=== PATIENT | male | born 1980 | race Two or more races ===

== ENCOUNTER → 2020-12-21 17:04 | Outpatient (CLI) | payer SELFPAY | PROVIDERS: PCP Physician Assistant; Visit Provider Nurse Practitioner | DX: Z20.822 Contact with and (suspected) exposure to COVID-19 (principal) | CPT/HCPCS: C9803; U0003; U0005 ==

== ENCOUNTER 2022-05-03 10:27 | Emergency (ER) | payer SELFPAY ==
[2022-05-03 10:28] VITALS: BP 124/74; PULSE 70; RESP 17; TEMP 36.8; O2SAT 100; BMI 19.2
--- NOTE | 2022-05-03 10:45 | PC.NURSE ---
PT UNABLE TO PERFORM VISUAL ACUITY EXAM WITHOUT GLASSES OR CONTACTS
--- NOTE | 2022-05-03 10:48 | PC.NURSE ---
DR. HILTON AT BEDSIDE
--- NOTE | 2022-05-03 11:06 | HMH.EDGENADL ---
Discharge Plan Disposition Patient Disposition: Home, Self-Care Condition: Good Referrals Follow up/Referrals: Jere Rebolledo OD [Referring] - See instructions Provider,MD Paris [Primary Care Provider] - See instructions Activity Restrictions/Add. Instructions Additional Instructions/Restrictions: Apply the antibiotic drops every 4-6 hours. Call today for close follow-up with optometry. Return for worsening pain, decreasing vision or other concerns. Avoid ibuprofen and aspirin however you may take Tylenol as needed for discomfort. Avoid exertion. Clinical Impressions Clinical Impression: Subconjunctival hemorrhage Discharge ED Provider: Issa Russo General Adult HPI General Chief complaint: Eye Problems Stated complaint: RT eye redness possible foreign object Time Seen by Provider: 05/03/22 10:46 Mode of Arrival: Ambulatory Limitations: No Limitations Description of Symptoms (Recalled from ER Triage Doc. 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 DENIES PAIN, ITCHING OR BURNING. DENIES VISUAL DISTURBANCE History of Present Illness HPI narrative: The patient presents complaining of right eye discomfort that began last Sunday while he was working beneath the roof of the house when he had some dust into the eye. He denies decrease or change in vision he denies additional injuries he denies foreign body sensation at this time mother states initially had a foreign body sensation. He denies diplopia. Symptoms are described as moderate and without exacerbating or alleviating factors. Related Data Allergies Allergy/AdvReac Type Severity Reaction Status Date / Time PCN (PENICILLIN) Allergy Unknown I-RASH Uncoded 03/20/17 15:14 PFSH [facility] Disclaimer: The information contained in this section may have been updated after the patient was seen, as this information can be updated by other users. Social History Smoking Status: Never smoker alcohol intake: never current occupational status: employed Travel in the last 8 weeks: None ROS Obtained: Yes All systems reviewed & no additional complaints except as documented Physical Exam General General appearance: alert Head Head exam: atraumatic (There is no evidence of head trauma aside from the apparent eye injury.) Eye Eye exam: Present other (To the nasal aspect of the right eye there is an approximate 1 cm diameter area of subconjunctival hemorrhage. Double lid eversion is negative for foreign bodies. The eyes stained with fluorescein and no foreign bodies are visualized nor are there any definitive corneal defects appreciated. There) ENT ENT exam: Present normal exam Neck Neck exam: Present normal inspection Chest Chest inspection: Present normal inspection Respiratory Respiratory exam: Present normal lung sounds bilaterally Cardiovascular Cardiovascular exam: Present regular rate and normal rhythm Abdominal Exam Abdominal exam: Present soft; Absent tenderness Back Exam Back exam: Present normal inspection Neurological Exam Neurological exam: Present alert and oriented X3 Psychiatric Psychiatric exam: Present normal affect Skin Skin exam: Present warm and dry Medical Decision Making Medical Records Medical records reviewed: Yes I reviewed the patient's medical records. [place] Inquiry Pt receiving controlled substance: No Vital Signs: 05/03/22 10:28 Temperature 98.2 F Temperature Source Oral Pulse Rate [Radial] 70 Respiratory Rate 17 Blood Pressure [Left Arm] 124/74 Blood Pressure Mean [Left Arm] 90 Blood Pressure Source [Left Arm] Automatic Cuff Blood Pressure Position [Left Arm] Sitting 02 Sat by Pulse Oximetry 100 Oxygen Delivery Method Room Air Orders (Tests/Meds): ED MEDICATIONS Discontinued Medications Generic Name Dose Route Start Last Admin Trade Name Freq PRN Reason Stop Dose Ad
[2022-05-03 12:14] VITALS: BP 130/70; PULSE 70; RESP 18; TEMP 36.7; O2SAT 99
== END 2022-05-03 11:15 | disposition home or self-care (01) ==
PROVIDERS: Emergency Provider Emergency Medicine
DX: H11.31 Conjunctival hemorrhage, right eye (principal)
CPT/HCPCS: 99283; 99284

== ENCOUNTER 2024-02-05 11:45 | Emergency (ER) | payer SELFPAY ==
[2024-02-05 11:55] VITALS: BP 126/81; PULSE 66; RESP 20; TEMP 37.4; O2SAT 98; BMI 19.2
--- NOTE | 2024-02-05 12:06 | ED_ITS ---
Discharge Plan Disposition Patient Disposition: Home, Self-Care Condition: Good Prescriptions Prescriptions: New clindamycin HCl 300 mg capsule 300 mg PO Q8H 7 Days Qty: 21 0RF Referrals Follow up/Referrals: Provider,Referral, MD [Primary Care Provider] - See instructions Activity Restrictions/Add. Instructions Additional Instructions/Restrictions: Suture instructions: ?You have required stitches today. Please read the following instructions so you know how to care for them: ?1. Keep wound area dry for the first 24 hours. 2?? May clean gently with mild soap and water, after 48 hours to prevent crusting over suture knots. 3. You may shower if your provider gives permission but do not take a bath until the skin is healed.. 4. Never leave a wet dressing or Band-Aid on your stitches as this allows bacteria to reach the area and may cause infection. Band-aids can cause the wound to sweat and not recommended to wear for long periods of time Watch for signs of infection: ? Increasing redness, tenderness or warmth around the suture site ? Unusual swelling around the site ? Appearance of pus around each suture or any red streaks ? Fever If you develop any of the above signs or symptoms of infection, Follow up with Family Physician immediately 5. Suture removal in _10-12___days 6. Return to [facility] or follow up with family doctor for removal. This can be done by any medical provider dur?ing regular hours on Sunday through Sunday, by appointment. Clinical Impressions Clinical Impression: Laceration Instructions Patient Instructions: DI for Laceration Repair, Clindamycin Print Language Print Language: Greenlandic Discharge ED Provider: Zena Gilbert [facility] HPI General Stated complaint: cut on left thumb Mode of Arrival: Ambulatory Source of Information: Patient Limitations: No Limitations Time Seen by Provider: 02/05/24 12:06 Description of Symptoms (Recalled from Triage Doc. 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 States he is able to move and bend finger and denies any loss of sensation or feeling in finger not sure when his last tetanus was Related Data Previous Rx's ?Medication ?Instructions ?Recorded clindamycin HCl 300 mg capsule 300 mg PO Q8H 7 days #21 caps 02/05/24 Allergies Allergy/AdvReac Type Severity Reaction Status Date / Time Penicillins Allergy Unknown Verified 02/05/24 12:00 allergy reaction Worker's Comp Is this a Worker's Comp case?: No [facility] Disclaimer: The information contained in this section may have been updated after the patient was seen, as this information can be updated by other users. Medical History (Updated 02/05/24 @ 12:54 by Zena Gilbert APRN) No significant past medical history Social History (Updated 05/03/22 @ 11:09 by Issa Russo MD) Smoking Status: Never smoker alcohol intake: never current occupational status: employed Travel in the last 8 weeks: None ROS Obtained: Yes All systems reviewed & no additional complaints except as documented and Yes Systems reviewed as appropriate & no additional complaints except as documented Constitutional Constitutional: Reports system reviewed and no additional complaints, except as documented and Reports as per HPI ENT Ears, Nose, Mouth, and Throat: Reports system reviewed and no additional complaints, except as documented and Reports as per HPI Cardiovascular Cardiovascular: Reports system reviewed and no additional complaints, except as documented and Reports as per HPI Respiratory Respiratory: Reports system reviewed and no additional complaints, except as documented and Reports as per HPI Gastrointestinal Gastrointestingal: Reports system reviewed and no additional complaints, except as documented and as per HPI Integumentary/Breasts Skin/Breast: Reports system reviewed and no additional complaints, except as documented, Reports as per HPI and Reports other (laceration to left thumb no fingernail involvement) Physical Exam General General appearance: alert and in no apparent distress ENT ENT exam: Present mucous membranes moist Respiratory Respiratory exam: Present normal lung sounds bilaterally; Absent respiratory distress or wheezes Cardiovascular Cardiovascular exam: Present regular rate, normal rhythm and normal heart sounds Expanded Upper Extremity Exam Left: Hand L/R front image: 2 1. laceration Neurological Exam Neurological exam: Present alert, oriented X3 and normal gait Medical Decision Making Medical Records Screening: Per USPSTF and CDC recommendations, given the prevalence of disease in our region, it is our hospital?s policy to screen for HIV and viral Hepatitis for all patients aged 18 and over and those with ongoing risk factors. [place] Inquiry Pt receiving controlled substance: No [place] was queried for this patient: No Vital Signs: 02/05/24 11:55 Temperature 99.3 F Temperature Source Temporal Artery Scan Pulse Rate [Right Brachial] 66 Respiratory Rate 20 Blood Pressure [Right Arm] 126/81 Blood Pressure Mean [Right Arm] 96 Blood Pressure Source [Right Arm] Automatic Cuff Blood Pressure Position [Right Arm] Sitting 02 Sat by Pulse Oximetry 98 Oxygen Delivery Method Room Air Orders (Tests/Meds): ED MEDICATIONS Discontinued Medications Generic Name Dose Route Start Last Admin Trade Name Freq PRN Reason Stop Dose Admin Tetanus/Reduced Diphtheria/Acell Pertussis 0.5 ml 02/05/24 12:00 Tet/Diphth/Pert-Adult 0.5ml Syringe IM 02/05/24 12:01 .ONCE ONE Procedures Laceration Laceration 1: Site: thumb Side (If applicable): left Size (cm): 2 Description: linear Depth: simple, single layer Local Anesthetic: lidocaine 1% Amount of anesthesia used (mL): 1 Pre-repair: wound explored and irrigated extensively Skin layer closed with: nylon Size (cm): 4-0 Number of sutures: 9 Technique: simple, interrupted (wound edges approximated well)
[2024-02-05] MEDS: TET/DIPHTH/PERT-ADULT 0.5ML SYRINGE 0.5 ML IM (12:11)
[2024-02-05] MEDS: LIDOCAINE 1% PF 2ML AMPULE 2 ML SUBCUT (12:15)
[2024-02-05] MEDS: NEOSPORIN OINTMENT 0.9GM UDP 1 EACH TP (12:48)
--- NOTE | 2024-02-05 12:55 | PC.NURSE ---
DRY NON-STICK DRESSING APPLIED AT THIS TIME
[2024-02-05 12:56] VITALS: BP 126/81; PULSE 66; RESP 20; TEMP 37.4; O2SAT 98
== END 2024-02-05 12:58 | disposition home or self-care (01) ==
PROVIDERS: Emergency Provider Nurse Practitioner
DX: S61.012A Laceration without foreign body of left thumb without damage to nail, initial encounter (principal); W26.8XXA Contact with other sharp object(s), not elsewhere classified, initial encounter
CPT/HCPCS: 12001; 90471; 90715; 99214; G0382